=== PATIENT | male | born 1985 | race Caucasian/White ===

== ENCOUNTER 2021-06-27 21:13 | Emergency (ER) | payer BC, SELFPAY ==
[2021-06-27] VITALS (7 sets, daily range): BP systolic 117–145; BP diastolic 67–90; PULSE 71–79; RESP 16; TEMP 36.7–36.8; O2SAT 95–100; BMI 34.4
--- NOTE | 2021-06-27 13:51 | ECG_ITS ---
APPROVED REPORT Exam: Resting ECG HR:67 bpm ECG Measurements Heart Rate 67 AXES VT 146 P 42 QRSd 112 QRS 56 QT 408 T 36 QTc 431 Conclusion Normal sinus rhythm Normal ECG Electronically signed by : Osbaldo Sky MD 06/30/2021 14:34:39
--- NOTE | 2021-06-27 21:39 | XR_ITS ---
PROCEDURE INFORMATION: Exam: XR Chest Exam date and time: 06/27/2021 9:39 PM Age: 35 years old Clinical indication: Left-sided; Patient HX: Left sided, left breast area pain for 2 weeks. ; Additional info: Chest pain TECHNIQUE: Imaging protocol: XR of the chest. Views: 2 views. COMPARISON: No relevant prior studies available. FINDINGS: Lungs: Unremarkable. No consolidation. Pleural spaces: Unremarkable. No pleural effusion. No pneumothorax. Heart/Mediastinum: Unremarkable. No cardiomegaly. Bones/joints: Unremarkable. IMPRESSION: No acute findings.
[2021-06-27 21:51] LABS: Basophils # 0.3 K/mm3 (0-0.2); Basophils % 2.4 % (0.1-2.0); Eosinophils # 0.7 K/mm3 (0.0-0.4); Eosinophils % 6.3 % (0.1-12.0); Hematocrit 45.6 % (42.0-52.0); Hemoglobin 15.8 g/dL (14.1-18.0); Lymphocytes # 3.9 K/mm3 (0.7-4.5); Lymphocytes % 36.3 % (10-50); Mean Corpuscular HGB Conc 34.5 g/dL (31.8-35.4); Mean Corpuscular Hemoglobin 29.4 pg (27.0-31.2); Mean Corpuscular Volume 85.2 fl (80-94); Mean Platelet Volume 8.3 fl (7.4-10.4); Monocytes # 0.6 K/mm3 (0.1-1.0); Neutrophils # 5.3 K/mm3 (1.8-7.8); Platelet Count 245 K/mm3 (142-424); Red Blood Count 5.35 M/mm3 (4.60-6.20); Red Cell Distribution Width 13.2 % (11.5-17.5); White Blood Count 10.8 K/mm3 (4.8-10.8)
[2021-06-27 21:53] LABS: Alanine Aminotransferase 41 U/L (12-78); Albumin/Globulin Ratio 1.6 (1.1-1.8); Alkaline Phosphatase 66 U/L (38-126); Amylase 112 U/L (30-110); Anion Gap 12.9 mEq/L (5-15); Aspartate Amino Transferase 44 U/L (17-59); Bilirubin,Total 0.6 mg/dl (0.2-1.3); Blood Urea Nitrogen 26 mg/dl (9-20); Calcium 9.7 mg/dl (8.4-10.2); Carbon Dioxide 30 mmol/L (22.0-30.0); Chloride 101 mmol/L (98-107); Creatinine Clearance Estimated 112 mL/min (50-200); Estimated Glomerular Filt Rate 57 ml/min (>60); GFR (African American) 69 ML/MIN (>60); Globulin 3.1 g/dL (1.3-3.2); Glucose 96 mg/dl (74-100); Lipase 304 U/L (23-300); Potassium 3.9 mmoL/L (3.5-5.1); Sodium 140 mmol/L (136-145); Total Protein,Serum 8.1 g/dl (6.3-8.2)
[2021-06-27 22:01] LABS: Microscopic, Urine URINE MICROSCOPIC (MICROSCOPIC)
[2021-06-27 22:08] LABS: Troponin I < 0.01 ng/ml (0.00-0.034)
[2021-06-27 22:12] LABS: Procalcitonin 0.054 ng/mL (0.0-2.0)
--- NOTE | 2021-06-27 22:13 | [facility].EDCP ---
ED Disposition Clinical Impression: Atypical chest pain Disposition: Home, Self-Care Condition on Discharge: Good Instructions: DI for Atypical Chest Pain Additional Instructions: call pcp for follow up Referrals: Tex Osborne [Primary Care Provider] - - Critical Care Critical Care Time: No Attestation: On 06/27/21, the high probability of a clinically significant, sudden or life threatening deterioration of the following system(s) required my full and direct attention, intervention and personal management. The time I documented below is in addition to time spent performing reported procedures but includes the following listed in this critical care notation. Medical Decision Making - Medical Records Medical records reviewed: Yes: I reviewed the patient's medical records. - Armando Inquiry Pt receiving controlled substance: No Vital Signs: 06/27/21 21:13 06/27/21 21:17 06/27/21 21:45 Temperature 98.2 F Temperature Source Oral Pulse Rate 72 71 Pulse Rate [Left] 72 Respiratory Rate 16 Blood Pressure 144/90 H 145/90 H Blood Pressure [Right Arm] 144/90 H Blood Pressure Mean [Right Arm] 108 02 Sat by Pulse Oximetry 99 99 98 Oxygen Delivery Method Room Air Room Air 06/27/21 22:00 06/27/21 22:30 Temperature Temperature Source Pulse Rate 79 79 Pulse Rate [Left] Respiratory Rate Blood Pressure 142/80 H 129/77 Blood Pressure [Right Arm] Blood Pressure Mean [Right Arm] 02 Sat by Pulse Oximetry 100 95 Oxygen Delivery Method Room Air Room Air - Lab Data Lab results reviewed: Yes: I reviewed the patient's lab results. Lab Results 06/27/21 21:25: WBC 10.8, RBC 5.35, Hgb 15.8, Hct 45.6, MCV 85.2, MCH 29.4, MCHC 34.5, RDW 13.2, Plt Count 245, MPV 8.3, Neut % (Auto) 49.0, Lymph % (Auto) 36.3, [place] % (Auto) 6.0, Eos % (Auto) 6.3, Baso % (Auto) 2.4 H, Neut # (Auto) 5.3, Lymph # (Auto) 3.9, [place] # (Auto) 0.6, Eos # (Auto) 0.7 H, Baso # (Auto) 0.3 H, ESR 10 06/27/21 21:25: Sodium 140, Potassium 3.9, Chloride 101, Carbon Dioxide 30, Anion Gap 12.9, BUN 26 H, Creatinine 1.40 H, Estimated Creat Clear 112, Estimated GFR 57 L, Est GFR ( Amer) 69, Glucose 96, Calcium 9.7, Total Bilirubin 0.6, AST 44, ALT 41, Alkaline Phosphatase 66, Troponin I < 0.01, C-Reactive Protein 2.0, Total Protein 8.1, Albumin 5.0, Globulin 3.1, Albumin/Globulin Ratio 1.6, Amylase 112 H, Lipase 304 H, Procalcitonin 0.054 06/27/21 21:43: Urine Color Yellow, Urine Appearance Clear, Urine pH 6.0, Ur Specific [place] 1.025, Urine Protein Negative, Urine Glucose (UA) Negative, Urine Ketones Trace, Urine Blood 3+, Urine Nitrate Negative, Urine Bilirubin Negative, Urine Urobilinogen 0.2, Ur Leukocyte Esterase Negative, Urine RBC 20-50, Urine WBC Occasional, Urine Bacteria Trace Result diagrams: 06/27/21 21:25 06/27/21 21:25 Orders (Tests/Meds): ED MEDICATIONS Generic Name Dose Route Start Last Admin Trade Name Freq PRN Reason Stop Dose Admin Sodium Chloride 1,000 mls @ 999 mls/hr 06/27/21 22:00 06/27/21 21:53 Sod Chlor 0.9% 1000ml Bag IV 06/27/21 23:00 999 mls/hr .Q1H1M CUATE Administration Sodium Chloride 8 ml 06/27/21 21:49 Sodium Chloride 0.9% 10ml Vial IV 07/27/21 21:48 NEEDED PRN dilute pepcid Discontinued Medications Generic Name Dose Route Start Last Admin Trade Name Freq PRN Reason Stop Dose Admin Famotidine 20 mg 06/27/21 21:49 06/27/21 21:54 Famotidine 20mg/2ml Vial IV 06/27/21 21:50 20 mg ONCE ONE Administration Iopamidol 70 ml 06/27/21 22:53 06/27/21 22:54 Iopamidol-370 (76%);100ml Bottle IV 06/27/21 22:54 70 ml ONCE ONE Administration Ketorolac Tromethamine 30 mg 06/27/21 21:48 06/27/21 21:54 Ketorolac 30mg/Ml Vial IV 06/27/21 21:49 30 mg ONCE ONE Administration Metoclopramide HCl 10 mg 06/27/21 21:49 06/27/21 21:53 Metoclopramide Hcl 10mg/2ml Vial IVP 06/27/21 21:50 10 mg ONCE ONE Administration Ondansetron HCl
[2021-06-27 22:17] LABS: Erythrocyte Sedimentation Rate 10 mm/hr (0-15)
--- NOTE | 2021-06-27 22:22 | CT_ITS ---
PROCEDURE INFORMATION: Exam: CTA Chest With Contrast Exam date and time: 06/27/2021 10:22 PM Age: 35 years old Clinical indication: Chest wall pain; Additional info: Sob/pleuritic chest pain TECHNIQUE: Imaging protocol: Computed tomographic angiography of the chest with contrast. 3D rendering (Not supervised by radiologist): MIP and/or 3D reconstructed images were created by the technologist. Radiation optimization: All CT scans at this facility use at least one of these dose optimization techniques: automated exposure control; mA and/or kV adjustment per patient size (includes targeted exams where dose is matched to clinical indication); or iterative reconstruction. Contrast material: ISOVUE 370; Contrast volume: 70 ml; Contrast route: INTRAVENOUS (IV); COMPARISON: CR XR CHEST 2V 06/27/2021 9:38 PM FINDINGS: Pulmonary arteries: Normal. No pulmonary emboli. Aorta: Unremarkable. No aortic aneurysm. No aortic dissection. Lungs: Unremarkable. No consolidation. No masses. Pleural spaces: Unremarkable. No pneumothorax. No pleural effusion. Heart: Unremarkable. No cardiomegaly. No pericardial effusion. Lymph nodes: Unremarkable. No enlarged lymph nodes. Bones/joints: Unremarkable. No acute fracture. Soft tissues: Unremarkable. IMPRESSION: No acute findings.
[2021-06-27 22:25] LABS: Appearance,Urine CLEAR (Clear); Bilirubin,Urine Negative (Negative); Blood, Urine 3+ (Negative); Color,Urine YELLOW (Yellow); Glucose,Urine (UA) Negative (Negative); Ketones,Urine TRACE (Negative); Leukocyte Esterase,Urine Negative (Negative); Nitrate,Urine Negative (Negative); Protein,Urine Negative (Negative); Specific Gravity, Urine 1.025 (1.005-1.030); Urobilinogen,Urine 0.2 EU/dl (0.2)
[2021-06-27 22:45] LABS: Bacteria,Urine Trace /lpf; RBC,Urine 20-50 #/hpf (0-3); WBC,Urine Occasional #/hpf (0-3)
== END 2021-06-27 23:33 | disposition home or self-care (01) ==
PROVIDERS: Emergency Provider Emergency Medicine; PCP Family Medicine
DX: R07.89 Other chest pain (principal)
CPT/HCPCS: 71046; 71275; 80053; 81001; 82150; 83690; 84145; 84484; 85025; 85651; 86140; 93005; 96365; 96375; 99283; J2405; Q9967

== ENCOUNTER 2023-12-10 16:29 | Outpatient (CLI) | payer BC, SELFPAY ==
--- NOTE | 2023-12-10 16:43 | XR_ITS ---
PROCEDURE INFORMATION: Exam: XR Left Foot Complete; Alignment Exam date and time: 12/10/2023 4:44 PM Age: 38 years old Clinical indication: Pain; Foot; Left; Additional info: Foot pain TECHNIQUE: Imaging protocol: Radiologic exam of the left foot. Views: 3 or more views. COMPARISON: No relevant prior studies available. FINDINGS: Bones/joints: Minimal enthesophyte plantar margin of the calcaneus at the site of attachment of the plantar aponeurosis. Soft tissues: Normal. IMPRESSION: No evidence of acute osseous injury.
--- NOTE | 2023-12-10 16:43 | XR_ITS ---
PROCEDURE INFORMATION: Exam: XR Right Foot Complete; Alignment Exam date and time: 12/10/2023 4:44 PM Age: 38 years old Clinical indication: Pain; Foot; Right; Additional info: Foot pain TECHNIQUE: Imaging protocol: Radiologic exam of the right foot. Views: 3 or more views. COMPARISON: No relevant prior studies available. FINDINGS: Bones/joints: Minimal enthesophyte plantar margin of the calcaneus at the site of attachment of the plantar aponeurosis. Soft tissues: Normal. IMPRESSION: No evidence of acute osseous injury.
== END 2023-12-10 23:59 | disposition home or self-care (01) ==
LOC: RAD 16:31
PROVIDERS: PCP Family Medicine; Visit Provider Podiatrist
DX: M79.671 Pain in right foot (principal); M79.672 Pain in left foot; M21.6X1 Other acquired deformities of right foot; M21.6X2 Other acquired deformities of left foot; M72.2 Plantar fascial fibromatosis
CPT/HCPCS: 73630